=== PATIENT | female | born 2000 | race Caucasian/White ===

== ENCOUNTER 2024-02-29 11:49 | Emergency (ER) | payer BC, SELFPAY ==
[2024-02-29 11:51] VITALS: BP 115/77
[2024-02-29 14:19] VITALS: BMI 25.4
[2024-02-29 14:21] VITALS: BP 111/75
[2024-02-29 14:34] LABS: % Basophils 0.5 % (0-2); % Immature Granulocytes 0.1 % (0-0.5); % Monocytes 10.4 % (1.7-9.3); Absolute Eosinophils 0.3 10^3/uL (0-0.7); Absolute Lymphocytes 2.6 10^3/uL (1.2-3.4); Absolute Monocytes 0.8 10^3/uL (0.1-0.6); Absolute Neutrophils 3.7 10^3/uL (1.4-6.5); Hematocrit 41.2 % (37.0-47.0); Hemoglobin 13.8 g/dL (12.0-16.0); Mean Corp Hgb Conc. 33.5 g/dL (33.0-37.0); Mean Corpuscular Hgb 29.8 pg (27.0-31.0); Mean Platelet Volume 8.7 fL (7.4-10.4); Nucleated Red Blood Cells % 0 %; Platelet Count 243 10^3/uL (130-400); Red Blood Cell Count 4.63 10^6/uL (4.20-5.40); White Blood Cell Count 7.5 10^3/uL (4.8-10.8)
[2024-02-29 14:35] LABS: Urine Albumin Trace (Neg - Trace); Urine Bilirubin 1+ (Negative); Urine Character Very Cloudy (Clear); Urine Color Amber; Urine Glucose Negative (Negative); Urine Ketone 1+ (Negative); Urine Leukocyte 1+ (Negative); Urine Nitrite Positive (Negative); Urine Occult Blood Negative (Negative); Urine Urobilinogen 2+ (Neg - 1+)
[2024-02-29] MEDS: NSS 1000 IV (14:37)
--- NOTE | 2024-02-29 14:40 | ED.GENMED ---
Addendum entered and electronically signed by Armani Siu PA-C 03/03/24 10:40:
UCx positive for 100k E coli. Pt does not have significant UTI symptoms however asymptomatic bacteruria would be atypical in this age. Will treat w/ 5d course of nitrofurantoin. pt made aware, in agreement, all questions answered
Original Note:
History of Present Illness
General
Chief Complaint: Abdominal Pain
Source: patient
Exam Limitations: none
Time Seen by Provider: 02/29/24 14:09
Nursing documentation reviewed up to this point in time: agreed with
Travel History
Have you had any contact with someone who has COVID-19?: No
Do you have any symptoms of coronavirus? Fever > 100 degrees, chills, cough, shortness of breath, sore throat, loss of taste or smell, muscle aches, or headache?: No
History of Present Illness
History of Present Illness:
Patient is a 23-year-old female presents to the ER for evaluation . As I entered patient's room to see patient nurse reports that after IV line patient's heart rate decreased into the 30s. Nurse reports that patient had stated that this typically
happens with IVs. During my exam patient was pale in the supine position feeling lightheaded heart rate did increase back into the 50s.
She was able to give me history. She reports she has had intermittent nausea vomiting diarrhea and bloating since last week. She has taken occasional Imodium diarrhea has since stopped.
She denies any actual pain but does complain of bloating. She reports although she started with intermittent diarrhea now when she moves her bowels it is normal. She does however have urgency when she moves her bowels. She denies any fever
chills. She denies any urinary frequency urgency or dysuria.
Past History
Past History
ED Past Medical History: Asthma (Seasonal) and Other (Narcolepsy, IBS, ADHD, )
ED Past Surgical History: Other (Fisser repair, hemorrhoidectomy)
Social History
Tobacco: Non-smoker
Alcohol: Occasional
Drug: Marijuana
Personal: Single
Living: with roommate ([employer])
Review of Systems
Review of Systems
Allergies reviewed?: Yes
All Other Systems: ROS reviewed and negative except as documented in HPI and ROS
Constitutional: Reports no symptoms; Denies fever, fatigue or chills
EENT: Reports no symptoms
Respiratory: Reports no symptoms
Cardiac: Reports no symptoms
ABD/GI: Reports abdominal pain, vomiting, diarrhea and other ('abdominal bloating' )
: Reports no symptoms
Musculoskeletal: Reports no symptoms
Skin: Reports no symptoms
Neurological: Reports no symptoms
Hematologic/Lymphatic: Reports no symptoms
Psychiatric: Reports no symptoms
Phy Exam
General Physical Exam
General Presentation: no apparent distress
General age: appears stated age
General Skin: warm and dry
General Habitus: normal
General Mental: alert
General Hydration: appears well hydrated
Gastrointestinal Exam
Gastrointestinal Exam: other (non specific abd tenderness no abd guarding )
Neurological Exam
Neurological Exam: alert and oriented x3
Musculoskeletal Exam
Musculoskeletal Exam: full ROM
Skin Exam
Skin Exam: normal color and warm/dry
Psychiatric Exam
Psychiatric Exam: normal mood/affect
Course
Orders/Labs/Results
Orders:
Orders
02/29/24 14:15
Test Result ONCE
02/29/24 14:27
Complete Blood Count/With Diff Urgent
Comprehensive Metabolic Panel Urgent
HCG, Serum Qualitative Screen Urgent
Urinalysis Reflex To Culture Urgent
Date Specimen was Collected: 02/29/24
Time Specimen was Collected: 14:17
Urine Microscopic Reflex Cult Urgent
Urine Culture Urgent
MIKHAIL Source: U
Specimen Description:
Date Specimen was Collected: 02/29/24
Time Specimen was Collected: 14:17
02/29/24 14:36
0.9% Sodium Chloride 1000 ml [Nss] 1,000 ml IV BOLUS
02/29/24 14:39
Ondansetron Injectable [Zofran] 4 mg IV NOW STA
02/29/24 14:42
Electrocardiogram (*1) Urgent
Reason for Study: Fatigue / Weakness
02/29/24 14:43
EKG- Treatment ONCE
02/29/24 16:22
CT Abd/pelvis W Iv Cont Urgent
Comment:
Reason For Exam: abd pain
Abnormal Lab Results
02/29/24
14:27
Absolute Monos (auto) 0.8 H 10^3/uL
(0.1-0.6)
Monocytes % 10.4 H %
(1.7-9.3)
AST 64 H U/L
(14-36)
ALT 105 H U/L
(0-35)
Urine Ketones 1+ A
(Negative)
Urine Nitrite (Reflex) Positive A
(Negative)
Urine Bilirubin 1+ A
(Negative)
Urine Urobilinogen 2+ A
(Neg - 1+)
Leukocyte Esterase Rfl 1+ A
(Negative)
Urine Bacteria (Reflex) Few A
(Negative)
02/29/24 14:27
02/29/24 14:27
Vital Signs
Initial and Last Documented VS:
Initial Vital Signs
Temp Pulse Resp BP Pulse Ox
98.6 F 87 16 115/77 96
02/29/24 11:51 02/29/24 11:51 02/29/24 11:51 02/29/24 11:51 02/29/24 11:51
Last Documented Vital Signs
Temp Pulse Resp BP Pulse Ox
98.6 F 72 16 105/62 95
02/29/24 11:51 02/29/24 17:30 02/29/24 17:30 02/29/24 16:00 02/29/24 17:30
MDM/Problems Addressed
Differential Diagnosis Includes:
Not limited to viral syndrome, less likely diverticulitis colitis constipation
MDM/Problems Addressed:
Patient is a 21-year-old female who has had intermittent nausea vomiting diarrhea bloating since Sunday. As documented during workup and with IV insertion patient had an episode of very low heart rate in the 30s that came up spontaneously. She
has had this multiple times in the past and in fact getting a colonoscopy previously this occurred. During my exam she was awake alert. She was able to give history. She presents awake alert no acute distress nonspecific mild abdominal
tenderness. She has no UTI symptoms and no obvious UTI on UA, there are nitrates in urine only 6�10 white blood cells and without symptoms we will hold off on treating until culture. CAT scan shows constipation no other acute findings. Patient is
afebrile with a normal white count normal chemistries minimally elevated LFTs will have patient follow-up however likely stable for discharge .
Chronic conditions affecting care:
vagal response from IV insertion
*Radiology
Radiology exam reviewed: radiology read reviewed (CAT scan shows large amount of feces throughout the colon suggesting constipation small amount of free fluid in the cul-de-sac)
*Pulse Oximetry
Patient hypoxic: no
*EKG
Interpreted by ED Provider?: Yes
Heart Rate: 67
Rate: normal
Rhythm: sinus
Ischemia: no ischemia
*Critical Care Note
Total Time (30-74mins, 75-104mins- exclusive of procedures): Not Applicable
ED Attending Note
-
Portions of this chart may have been created with voice recognition software.� Occasional wrong word or��sound alike� substitutions may have occurred due to the inherent limitations of voice recognition software.
Discharge Plan
Departure
Patient Disposition: Home (Routine Discharge)
Date of Disposition: 02/29/24
Time of Disposition: 18:13
Patient with high blood pressure during this ER visit?: No
Condition: Fair
Covid-19: Not Applicable
Discharge Problem:
Constipation
Instructions: Constipation, Adult (DC)
Prescriptions:
No Action
escitalopram oxalate [Lexapro] 10 mg Tablet
10 mg PO HS
Sprintec (28)
1 tab PO DAILY
armodafinil
150 mg PO DAILY
Zofran ODT
4 mg PO Q8H PRN (Reason: nausea)
rabies vacc,human diploid (PF) 2.5 unit recon soln
1 ml IM ONCE Qty: 3 0RF
Referrals:
NONE,* [Family Provider] -
Activity Restrictions/Additional Instructions:
As discussed your CAT scan does show constipation. You may start to use MiraLAX daily. Increase fiber and in your diet increase diet high in fresh fruits vegetables, water intake. As discussed your liver function tests are minimally elevated
please follow-up with family doctor for this. See your family doctor the next 2 days for reevaluation of your symptoms and return if any worsening of symptoms.
Interventions
Interventions:
*Risk Screen - Suicide Last Done: 02/29/24 14:19
*General Assessment Last Done: 02/29/24 14:19
*Neglect/Abuse Screening Last Done: 02/29/24 14:19
ED- Fall Risk Assessment Last Done: 02/29/24 14:19
*ED COVID-19 Vaccine History Last Done: 02/29/24 11:51
GU-[id number]-Ttpmctrngw Assessment Last Done: 02/29/24 14:19
Discharge Date and Time
Print Language: YI
[2024-02-29 14:46] LABS: ALT (SGPT) 105 U/L (0-35); AST (SGOT) 64 U/L (14-36); Alkaline Phosphatase 76 U/L (38-126); Blood Urea Nitrogen 13 mg/dl (7-17); Calcium 9.4 mg/dl (8.4-10.2); Carbon Dioxide 27 mmol/L (22-30); Chloride 103 mmol/L (98-107); Estimated Creatinine Clearance 99 ml/min; Glucose 91 mg/dl (70-99); Potassium 3.7 mmol/L (3.5-5.1); Sodium 137 mmol/L (135-145); Total Bilirubin 0.4 mg/dl (0.2-1.3); Total Protein 7.9 g/dl (6.3-8.2); eGFR > 60.00
[2024-02-29 14:47] LABS: Urine Bacteria Few (Negative); Urine Red Blood Cell 0-2 /HPF (0-2); Urine Squamous Cell 0-2 /LPF (Few)
[2024-02-29 15:00] VITALS: BP 110/59
[2024-02-29 15:20] LABS: HCG, Serum Qualitative Screen Negative
[2024-02-29 16:00] VITALS: BP 105/62
[2024-02-29 18:25] VITALS: BP 106/62
== END 2024-02-29 18:35 | disposition home or self-care (01) ==
LOC: EMR 11:49
PROVIDERS: Nurse Practitioner; EMERGENCY PHYSICIAN Student in an Organized Health Care Education/Training Program
DX: K59.00 Constipation, unspecified (principal); R42 Dizziness and giddiness; R11.2 Nausea with vomiting, unspecified; R10.9 Unspecified abdominal pain; R00.1 Bradycardia, unspecified; J45.909 Unspecified asthma, uncomplicated; K58.9 Irritable bowel syndrome, unspecified; G47.419 Narcolepsy without cataplexy; F90.9 Attention-deficit hyperactivity disorder, unspecified type; Z88.2 Allergy status to sulfonamides
CPT/HCPCS: 99285; 96360; 74177; 80053; 81003; 81015; 84703; 85025; 87071; 87086; 87186; 93005; Q9967